=== PATIENT | female | born 1970 | race Caucasian/White ===

== ENCOUNTER → 2016-08-20 | Outpatient (CLI) | payer BC ==
[~2016-08-20] MED LIST: ALLERGY SHOTS; AVAPRO150 MG PO; BUPROPION HCL150 M1 PO; DYMISTA NASAL S23 GM; MULTI VITAMIN1 EACH PO; QUASENSE1 BLIST PA PO; VALTREX PO; ZYRTEC10 M2 PO
[2016-08-20 13:04] LABS: CHOLESTEROL 190 mg/dL (0-200); GLUCOSE RANDOM 84 mg/dL (70-110); HDL CHOLESTEROL 53 mg/dL (35-95); LDL CHOLESTEROL 111 mg/dL (-130); LDL/HDL RATIO 2 RATIO (0-4); TRIGLYCERIDES 130 mg/dL (10-160)
== END | disposition home or self-care (01) ==
LOC: CLAB 11:29
PROVIDERS: Surgery
DX: E66.01 Morbid (severe) obesity due to excess calories (principal)
CPT/HCPCS: 36415; 80061; 82947

== ENCOUNTER → 2016-08-20 | Outpatient (CLI) | payer SELFPAY | END | disposition home or self-care (01) | LOC: CBAR 11:34 | DX: E66.01 Morbid (severe) obesity due to excess calories (principal) | CPT/HCPCS: 76000 ==